=== PATIENT | female | born 1945 | race Hispanic/Latino ===

== ENCOUNTER → 2022-04-30 | Outpatient (CLI) | payer MEDICARE ==
[~2022-04-30] MED LIST: A20IH1 IH; ATOR20TA PO; BUDE0.5A5 IH; BUPR-49 PO; BUPR100T13 PO; DEXL60CA3 PO; DICL2100G TP; DOCU-116 PO; DONE5TAB33 PO; DULO60CA45 PO; ELET40TA PO; ESOM40CA PO; FERS325 PO; FEXO180T94 PO; HYDR200T82 PO; HYDR50CA50 PO; INS7030 SQ; LEVO125T11 PO; LIDO700A TP; LIDOCAINE HCL 4% LTA SOL 4 ML VIAL TP ONE; LINA290C PO; METO5TAB2 PO; MIDO5TAB4 PO; OXYB5TAB15 PO; PIOG45TA4 PO; PREG100C GT; RANI-662 PO; RISP3TAB44 PO; RISP4TAB73 PO; SULF500T75 PO; TIOT18CA3 IH; TOFA5TAB PO; TRAZ-187 PO; TYL3 PO; VALS40TA4 PO; VENL150C4 PO
== END | disposition home or self-care (01) ==
LOC: WHH 09:18
PROVIDERS: ATTEND Family Medicine
DX: S81.001A Unspecified open wound, right knee, initial encounter (principal); L92.8 Other granulomatous disorders of the skin and subcutaneous tissue; L30.4 Erythema intertrigo; E11.22 Type 2 diabetes mellitus with diabetic chronic kidney disease; I13.0 Hypertensive heart and chronic kidney disease with heart failure and stage 1 through stage 4 chronic kidney disease, or unspecified chronic kidney disease; N18.4 Chronic kidney disease, stage 4 (severe); E11.40 Type 2 diabetes mellitus with diabetic neuropathy, unspecified; M19.90 Unspecified osteoarthritis, unspecified site; J44.9 Chronic obstructive pulmonary disease, unspecified; K21.9 Gastro-esophageal reflux disease without esophagitis; I50.9 Heart failure, unspecified; E78.5 Hyperlipidemia, unspecified; G47.33 Obstructive sleep apnea (adult) (pediatric); G89.4 Chronic pain syndrome; G47.00 Insomnia, unspecified; M06.9 Rheumatoid arthritis, unspecified; G30.9 Alzheimer's disease, unspecified; F20.9 Schizophrenia, unspecified; F02.80 Dementia in other diseases classified elsewhere, unspecified severity, without behavioral disturbance, psychotic disturbance, mood disturbance, and anxiety; F31.30 Bipolar disorder, current episode depressed, mild or moderate severity, unspecified; F41.9 Anxiety disorder, unspecified; E66.9 Obesity, unspecified; Z68.43 Body mass index [BMI] 50.0-59.9, adult; Z98.61 Coronary angioplasty status; Z96.653 Presence of artificial knee joint, bilateral; Z79.4 Long term (current) use of insulin; Z90.49 Acquired absence of other specified parts of digestive tract; Z79.899 Other long term (current) drug therapy; Z90.710 Acquired absence of both cervix and uterus; Z88.0 Allergy status to penicillin; X58.XXXA Exposure to other specified factors, initial encounter; Y93.89 Activity, other specified; Y92.89 Other specified places as the place of occurrence of the external cause; Y99.8 Other external cause status
CPT/HCPCS: 11042; A6209; A4450

== ENCOUNTER → 2022-05-07 | Outpatient (CLI) | payer MEDICARE ==
[~2022-05-07] MED LIST changes: -LIDOCAINE HCL 4% LTA SOL 4 ML VIAL TP ONE
== END | disposition home or self-care (01) ==
LOC: WHH 08:20
PROVIDERS: ATTEND Family Medicine
DX: S81.001D Unspecified open wound, right knee, subsequent encounter (principal); L92.8 Other granulomatous disorders of the skin and subcutaneous tissue; L30.4 Erythema intertrigo; E11.65 Type 2 diabetes mellitus with hyperglycemia; E11.40 Type 2 diabetes mellitus with diabetic neuropathy, unspecified; E11.22 Type 2 diabetes mellitus with diabetic chronic kidney disease; I13.0 Hypertensive heart and chronic kidney disease with heart failure and stage 1 through stage 4 chronic kidney disease, or unspecified chronic kidney disease; N18.4 Chronic kidney disease, stage 4 (severe); M19.90 Unspecified osteoarthritis, unspecified site; J44.9 Chronic obstructive pulmonary disease, unspecified; K21.9 Gastro-esophageal reflux disease without esophagitis; I50.9 Heart failure, unspecified; E78.5 Hyperlipidemia, unspecified; G47.33 Obstructive sleep apnea (adult) (pediatric); G89.4 Chronic pain syndrome; G47.00 Insomnia, unspecified; G30.9 Alzheimer's disease, unspecified; M06.9 Rheumatoid arthritis, unspecified; F20.9 Schizophrenia, unspecified; F02.80 Dementia in other diseases classified elsewhere, unspecified severity, without behavioral disturbance, psychotic disturbance, mood disturbance, and anxiety; F31.30 Bipolar disorder, current episode depressed, mild or moderate severity, unspecified; F41.9 Anxiety disorder, unspecified; E66.9 Obesity, unspecified; Z68.43 Body mass index [BMI] 50.0-59.9, adult; Z98.61 Coronary angioplasty status; Z96.653 Presence of artificial knee joint, bilateral; Z79.899 Other long term (current) drug therapy; X58.XXXD Exposure to other specified factors, subsequent encounter
CPT/HCPCS: G0463; A6209